=== PATIENT | female | born 1985 | race Caucasian/White ===

== ENCOUNTER 2025-05-26 05:56 | Emergency (ER) | payer MEDICAID, SELFPAY ==
[2025-05-26 06:08] VITALS: BP 130/86; PULSE 107; TEMP 36.9; O2SAT 99; BMI 28.8
--- OUTSIDE RECORDS SUMMARY | 2025-05-26 06:08 | XMS_ITS | Clinical Summary ---
Author Organization [email or web address] Address [id number] [address] [place] [address] Care Team Providers Care Sports Betting Manager Name Role Phone Unavailable Primary Care Provider Unavailabl e Allergies No known active allergies Medications medroxyPROGESTE Jeancarlos (DEPO-PROVERA) 150 mg/mL injection Inject 1 mL (150 mg total) into the appropriate muscle every 3 (three) months. Active Hospital, Clinic, or Other Facility Administered Medication Ordered Dose Route Frequency Start Date End Date Status medroxyPROGESTERone (DEPO-PROVERA) injection 150 mgIndications: contraception 150 mg IM Once 05/03/2025 05/03/2025 Ended Active Problems Problem Noted Date Diagnosed Date Overweight (BMI 25.0-29.9) 04/14/2023 Overview (04/14/2023): Encouraged cessation Encounters Date Type Department Care Team Description 05/03/2025 3:15 PM EDT Nurse Injection [facility] [address] [place] [address] Encounter for surveillance of injectable contraceptive (Primary Dx) 05/03/2025 Travel 04/24/2025 Travel from Last 3 Months Family History Medical History Relation Name Comments Anxiety disorder Father Hong COPD Father Hong Hypertension Father Hong Cancer Maternal Grandmother bone Cancer Paternal Grandmother Relation Name Status Comments Father Hong Maternal Grandmother Paternal Grandmother Social History Tobacco Use Types Packs/Day Years Used Date Smoking Tobacco: Former Cigarettes 0.5 13 Smokeless Tobacco: Never Tobacco Cessation:Counseling Given: Not Answered Alcohol Use Standard Drinks/Week Comments No 0 (1 standard drink = 0.6 oz pur e alcohol) AUDIT-C Answer Date Recorded Frequency of Alcohol Consumption Never 11/15/2018 Average Number of Drinks Not on file 019 Frequency of Binge Drinking Not on file 10/20 PHQ-2 Answer Date Recorded Total Score 5 11/23/2024 Childcare Answer Date Recorded Childcare Unknown 03/30/2019 Employment Answer Date Recorded Employment Unknown 03/30/2019 Hunger Screening Answer Date Recorded Within the past 12 months we worried whether our food would run out before we got money to buy more. Never True 05/03/2025 Within the past 12 months th e food we bought just didn't last and we didn't have money to get more. Never True 05/03/2025 Purpose - Life Answer Date Recorded Purpose and direction in life Unknown Comments No Sex and Gender Information Value Date Recorded Sex Assigned at Not on file Legal Sex Female 11:35 AM EDT Gender Identity Not on file Sexual Orientation Not on file Last Filed Vital Signs Vital Sign Reading Time Taken Comments Blood Pressure 120/90 05/03/2025 2:58 PM EDT Pulse 91 11/15/2018 2:18 PM EST Temperature 36.9 C (98.4 F) 11/15/2018 2:18 PM EST Respiratory Rate 18 11/15/2018 2:18 PM EST Oxygen Saturation 98% 11/15/2018 2:18 PM EST Inhaled Oxygen Concentration - - Weight 78.6 kg (173 lb 3.2 oz) 05/03/2025 2:58 P M EDT Height 162.6 cm (5' 4 ) 05/03/2025 2:58 PM EDT Body Mass Index 29.73 05/03/2025 2:58 PM EDT Plan of Treatment Upcoming Encounters Date Type Department Care Team (Late st Contact Info) Description 07/19/2025 3:00 PM EDT Nurse Injection [facility] [place] [address] [place] [address] Health Maintenance Due Date Last Done Comments DTaP,Tdap and Td Vaccines (1 - Tdap) 2002 Mammogram 2023 Influenza Vaccine 06/19/2025 Adult BMI Follow Up Plan 11/23/2025 11/23/2024 Depression Screening 11/23/2025 11/23/2024 Adult BMI Screening 05/03/2026 05/03/2025 Tobacco Screening 05/03/2026 05/03/2025 Pap Smear 11/23/2027 11/23/2024, 11/23/2024 Medical Devices Not on file Procedures Procedure Name Priority Date/Time Associated Diagnosis Comments HIGH RISK HPV W/TOÑA Routine 11/23/2024 7:16 AM EST Cervical smear, as part of routine gynecological examination from Last 3 Months or Most Recently Relevant to Health Maintenance Results * High risk HPV w/toña (11/23/2024 7:16 AM EST) Hpv specimen type ThinPrep 11/24/2024 7:16 AM EST [facility] Hpv 16 Negative Negative^N egative 11/25/2024 6:20 AM EST [facility] Hpv 18 Negative Negative^N egative 11/25/2024 6:20 AM EST [facility] Other high risk hpv Negative Negative^N egative 11/25/2024 6:20 AM EST [facility] Comment: HPV types 31,33,35,39,45,52,56,58,59,66 and 68 DNA were undetectable. 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
--- NOTE | 2025-05-26 06:31 | ED.GENADUL1 ---
HPI HPI - General Adult General Stated complaint: sore throat Time Seen by Provider: 05/26/25 06:02 Source: patient Mode of arrival: walk-in Limitations: no limitations History of Present Illness HPI narrative: Patient is a 39-year-old female presenting to the emergency department with a 2-day history of URI symptoms and sore throat. 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 She states she feels generally fatigued, has a nonproductive cough, sore throat, and muscle aches. She denies any fevers or chills, though she feels cold . She denies any headache, nausea, vomiting, abdominal pain, chest pain, or shortness of breath. She does not smoke. Related Data Previous Rx's ?Medication ?Instructions ?Recorded azithromycin 250 mg tablet See Rx Instructions PO .COMPLEX #6 05/26/25 (Zithromax Z-Karlos) tabs Allergies Allergy/AdvReac Type Severity Reaction Status Date / Time No Known Drug Allergies Allergy Verified 05/26/25 06:02 Review of Systems ROS Status of ROS 10 or more systems reviewed and unremarkable except as noted in history and below PFSH PFS Social History Little interest or pleasure in doing things: not at all Feeling down, depressed, or hopeless: not at all Exam Narrative Exam Narrative: CONSTITUTIONAL: Appears fatigued but well-hydrated and nontoxic, answering questions and following commands appropriately SKIN: Was warm and dry, no rashes. EYES: Sclerae white. No conjunctival exudates. EARS, NOSE, THROAT: Mild erythema of the posterior oropharynx. No tonsillar enlargement or exudates. Uvula midline and nonedematous. No trismus. No peritonsillar abscess. No neck swelling or tenderness. Speaking with a mildly hoarse voice. Moist oral mucosa. No rhinorrhea. Bilateral TMs pearly quesada without erythema or bulging. RESPIRATORY: Clear to auscultation bilaterally, no wheezes, crackles, or stridor, no use of accessory muscles CARDIOVASCULAR: Normal rate and regular rhythm. There is no S3, S4, murmur, rub. GASTROINTESTINAL: Abdomen is nondistended. MUSCULOSKELETAL: No peripheral edema. NEUROLOGIC: Patient is awake and alert. Facies were symmetrical. Constitutional Vital Signs, click to edit/add: Last Vital Signs Temp 98.4 F 05/26/25 06:08 Pulse 107 H 05/26/25 06:08 Resp 20 05/26/25 06:08 BP 130/86 05/26/25 06:08 Pulse Ox 99 05/26/25 06:08 O2 Del Method Room Air 05/26/25 06:08 Course Vital Signs Vital signs: Vital Signs Temperature 98.4 F 05/26/25 06:08 Pulse Rate 107 H 05/26/25 06:08 Respiratory Rate 20 05/26/25 06:08 Blood Pressure 130/86 05/26/25 06:08 Pulse Oximetry 99 05/26/25 06:08 Oxygen Delivery Method Room Air 05/26/25 06:08 Temperature 98.4 F 05/26/25 06:08 Pulse Rate 107 H 05/26/25 06:08 Respiratory Rate 20 05/26/25 06:08 Blood Pressure 130/86 05/26/25 06:08 Pulse Oximetry 99 05/26/25 06:08 Oxygen Delivery Method Room Air 05/26/25 06:08 Medical Decision Making [facility] Narrative Medical decision making narrative: Patient is a 39-year-old healthy female, non-smoker, presenting to the emergency department with a 2-day history of URI symptoms and a sore throat. Vital signs are significant for mild tachycardia, otherwise within normal limits. She is afebrile and hemodynamically stable. Physical examination as noted above, however was unremarkable other than a mildly hoarse voice and mild erythema in the posterior oropharynx. Clinically, the patient's presentation is consistent with a viral URI/viral pharyngitis. She has no trismus or evidence of associated peritonsillar abscess. She has no other systemic symptoms and is afebrile, I have low concern for more severe etiologies such as retropharyngeal abscess or Hayes's angina. Patient will be treated symptomatically with Mucinex DM and oral dexamethasone. I do believe the patient is stable for discharge at this time. Return precautions were given including any new or worsening symptoms. They were given a prescription for a Z-Karlos, and instructed to take this medication if her symptoms do not improve in the next 5 days and subsequently follow up with her PCP. Patient understands and agrees to the plan. Differential Diagnosis Differential Diagnosis: Viral URI, viral pharyngitis Discharge Plan Discharge Clinical Impression: Viral upper respiratory infection Patient Disposition: Home, Self-Care Time of Disposition Decision: 06:17 Condition: Good Prescriptions / Home Meds: New azithromycin [Zithromax Z-Karlos] 250 mg tablet See Rx Instructions .ROUTE .COMPLEX Qty: 6 0RF Rx Instructions: For 250 mg dose pack: take 500 mg today (day 1), then 250 mg for 4 days (days 2-5) Print Language: Jamaican Instructions: Upper Respiratory Infection (ED) Referrals: Physician,Non-Staff, MD [Primary Care Provider] - 1 week
[2025-05-26] MEDS: DEXAMETHASONE 4 MG TABLET 10 MG PO (06:50)
[2025-05-26] MEDS: GUAIFENESIN 200 MG/DEXTROMETHORPHAN 20 MG 10 ML UNIT DOSE CUP PO (06:50)
== END 2025-05-26 06:53 | disposition home or self-care (01) ==
PROVIDERS: Emergency Provider Student in an Organized Health Care Education/Training Program
DX: J06.9 Acute upper respiratory infection, unspecified (principal); J02.9 Acute pharyngitis, unspecified; R53.83 Other fatigue; R05.9 Cough, unspecified; R52 Pain, unspecified
CPT/HCPCS: 87070; 87880; 99283; J8540